=== PATIENT | male | born 1970 | race Caucasian/White ===

== ENCOUNTER 2018-07-09 16:26 | Emergency (ER) | payer OTHER ==
[2018-07-09 16:34] VITALS: BP 123/78
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
== END 2018-07-09 18:55 | disposition home or self-care (01) ==
LOC: ED 16:26
DX: S39.012A Strain of muscle, fascia and tendon of lower back, initial encounter (principal); V89.2XXA Person injured in unspecified motor-vehicle accident, traffic, initial encounter
CPT/HCPCS: 72131; 99283

== ENCOUNTER 2023-08-04 22:09 | Emergency (ER) | payer SELFPAY ==
[2023-08-04 22:22] VITALS: BP 120/70
[2023-08-04 22:39] LABS: RAPID STREP SCREEN Negative (Negative)
[2023-08-04 22:44] LABS: BASOPHILS % (AUTO) 0.3 %; EOSINOPHILS % (AUTO) 0.3 %; HCT - HEMATOCRIT 46.7 % (42.0-52.0); LYMPHOCYTES # (AUTO) 0.7 10^3/uL (1.5-3.5); LYMPHOCYTES % (AUTO) 6.1 %; MEAN CORPUSCULAR HEMOGLOBIN 31.3 pg (27.0-31.0); MEAN CORPUSCULAR HGB CONC 34.3 g/dL (32.0-36.0); MEAN CORPUSCULAR VOLUME 91.2 fL (80.0-94.0); MEAN PLATELET VOLUME 8.4 fL (7.4-11.4); MONOCYTES # (AUTO) 0.6 10^3/uL (0.0-1.0); MONOCYTES % (AUTO) 4.9 %; NEUTROPHILS # (AUTO) 10.2 10^3/uL (1.5-6.6); NEUTROPHILS % (AUTO) 88.1 %; PLT - PLATELET COUNT 245 10^3/uL (130-450); RED BLOOD COUNT 5.12 10^6/uL (4.70-6.10); RED CELL DISTRIBUTION WIDTH 13.2 % (12.0-15.0); WHITE BLOOD COUNT 11.6 x10^3/uL (4.8-10.8)
[2023-08-04] MEDS: IPRATROPIUM/ALBUTEROL 3 ML NEB INH STA (22:45)
[2023-08-04] MEDS: DEXAMETHASONE 10 MG/ML VIAL IV STA (22:50)
[2023-08-04 22:57] LABS: ALBUMIN 4.6 g/dL (3.2-5.5); ALBUMIN/GLOBULIN RATIO 2.1 (1.0-2.2); ALKALINE PHOSPHATASE 69 IU/L (42-121); ALT ALANINE AMINOTRANSFERASE 10 IU/L (10-60); AST ASPARTATE AMINOTRANSFERASE 16 IU/L (10-42); BUN - BLOOD UREA NITROGEN 14 mg/dL (6-20); CALCIUM 9.5 mg/dL (8.5-10.3); CARBON DIOXIDE - CO2 25 mmol/L (21-32); CHLORIDE 102 mmol/L (101-111); GFR - MDRD 78 (>89); GLUCOSE 117 mg/dL (74-104); LIPASE < 10 U/L (11-82); POTASSIUM 4.2 mmol/L (3.5-4.5); SODIUM 134 mmol/L (135-145); TOTAL PROTEIN 6.8 g/dL (6.4-8.9)
--- NOTE | 2023-08-04 23:30 | XRAY Report ---
PROCEDURE: Chest 1V INDICATIONS: cough/sob/hypoxia TECHNIQUE: One view of the chest was acquired. COMPARISON: None. FINDINGS: Surgical changes and devices: None. Lungs and pleura: No pleural effusions or pneumothorax. Mild perihilar airway thickening. No focal c onsolidation. Mediastinum: Mediastinal contours appear normal. Heart size is normal. Bones and chest wall: No suspicious bony lesions. Overlying soft tissues appear unremarkable. IMPRESSION: Mild perihilar airway thickening suggestive of bronchitis either infectious or inflammatory etiology. No focal consolidation. Reviewed by: Brett Bradley MD on 08/04/2023 11:28 PM PDT Approved by: Brett Bradley MD on 08/04/2023 11:28 PM PDT Station ID: [id number]
[2023-08-04 23:38] LABS: B. PARAPERTUSSIS- RESP PCR PAN NOT DETECTED; B. PERTUSSIS- RESP PCR PANEL NOT DETECTED; C. PNEUMONIAE- RESP PCR PANEL NOT DETECTED; CORONAVIRUS 229E-RESP PCR NOT DETECTED; CORONAVIRUS HKU1-RESP PCR NOT DETECTED; CORONAVIRUS NL63-RESP PCR NOT DETECTED; CORONAVIRUS OC43-RESP PCR NOT DETECTED; HUMAN METAPNEUMOVIRUS NOT DETECTED; INFLUENZA A- RESP PCR PANEL NOT DETECTED; INFLUENZA B - RESP PCR PANEL NOT DETECTED; M. PNEUMONIAE- RESP PCR PANEL NOT DETECTED; PARAINFLUENZA VIRUS 1 NOT DETECTED; PARAINFLUENZA VIRUS 2 NOT DETECTED; PARAINFLUENZA VIRUS 3 NOT DETECTED; PARAINFLUENZA VIRUS 4 NOT DETECTED; RHINOVIRUS/ENTEROVIRUS DETECTED; RSV- RESP PCR PANEL NOT DETECTED; SARS-CoV-2 -RESP PCR PANEL NOT DETECTED
[2023-08-04] MEDS ORDERED: iohexoL-300 100 ML VIAL ONE (23:45)
[2023-08-05] MEDS: iohexoL-300 100 ML VIAL IVP ONE (00:24)
--- NOTE | 2023-08-05 01:20 | CT Report ---
PROCEDURE: Angio Chest INDICATIONS: hypoxia, dyspnea CONTRAST: Omni 300, 80mls TECHNIQUE: After the administration of intravenous contrast, 2 mm axial images were acquired from the pulmonary apices to the posterior costophrenic angles during the arterial phase. In addition, 1 mm lung kernel and 5 mm soft tissue kernel reconstructions were performed. 3-dimensional coronal oblique maximum int ensity projection (MIP) reformats, 8 mm axial MIP, and 5 mm coronal and sagittal MPR reformats were t hen performed through the thorax. For radiation dose reduction, the following was used: automated exp osure control, adjustment of mA and/or kV according to patient size. COMPARISON: Chest radiograph from earlier same day FINDINGS: Image quality: Diagnostic. Large vessels: No filling defects within the opacified pulmonary arteries, accounting for motion and contrast timing. No evidence of acute aortic syndrome or aortic aneurysm. Lungs and pleura: Mild ill-defined groundglass opacities of the central left upper lobe. No dense con solidation. No pleural effusions. No pneumothorax. No suspicious pulmonary nodules which require fol low up. Mediastinum: Heart size is normal. No pericardial effusion. No large vessel abnormality. No mediastin al adenopathy by size criteria. Chest wall and lower neck: Thyroid is unremarkable. No axillary or supraclavicular adenopathy by size . Bones: No aggressive osseous abnormality. Upper Abdomen: Unremarkable. IMPRESSION: No acute pulmonary emboli. Small patchy ill-defined groundglass opacity of the central left upper lobe likely representing infec tious or inflammatory process. No dense consolidation. No adenopathy. Consider follow-up chest CT in 3 months to document stability versus resolution. Reviewed by: Brett Bradley MD on 08/05/2023 1:19 AM PDT Approved by: Brett Bradley MD on 08/05/2023 1:19 AM PDT Station ID: [id number]
[2023-08-05 01:26] VITALS: O2SAT 92
--- NOTE | 2023-08-05 01:35 | ED Physician Documentation ---
PD HPI DYSPNEA - Stated complaint Stated Complaint: SOA - Chief complaint Chief Complaint: Resp - History obtained from History obtained from: Patient, EMS - Additional information Additional information: The pt comes to the ED with CC of dyspnea that started overnight. The pt has been noticing chills and sore throat for the past couple of days. He states he had asthma as a child, but this resolved when he started smoking at 18 years old. He states he has been cutting back recently, and only smokes a few cigarettes a day. He denies fever. He has never been given a diagnosis of COPD, but states he doesn't really go to the doctor, either. No CP. No cardiac issues. Pt is otherwise healthy as far as he knows. PD PAST MEDICAL HISTORY - Past Medical History Past Medical History: Yes Cardiovascular: None Respiratory: Asthma Neuro: None Endocrine/Autoimmune: None GI: None : None HEENT: None Psych: None Musculoskeletal: None Derm: None - Past Surgical History Past Surgical History: No - Present Medications Home Medications: Ambulatory Orders Medication Instructions Recorded Confirmed Albuterol Sulf [Ventolin Hfa 1 - 2 puffs INH Q4HR PRN #1 each 08/05/23 Inhaler] Azithromycin [Zithromax] 0 mg PO DAILY #6 tablet 08/05/23 predniSONE [Deltasone] 10 mg PO [id number] #42 tab 08/05/23 - Allergies Allergies/Adverse Reactions: Allergies Allergy/AdvReac Type Severity Reaction Status Date / Time No Known Drug Allergies Allergy Verified 08/04/23 22:22 - Social History Does the pt smoke?: No Smoking Status: Never smoker Does the pt drink ETOH?: No Does the pt have substance abuse?: No - Immunizations Immunizations are current?: No - POLST Patient has POLST: No PD ED PE NORMAL - Vitals Vital signs reviewed: Yes - General General: Alert and oriented X 3, No acute distress (Mildly labored respirations, otherwise NAD), Well developed/nourished - HEENT HEENT: Atraumatic, PERRL, EOMI, Moist mucous membranes - Neck Neck: Supple, no meningeal sign - Cardiac Cardiac: RRR, No murmur - Respiratory Respiratory: Other (Speaks full sentences, diffuse bilateral wheezing, mild. Mildly prolonged expiratory phase. ) - Abdomen Abdomen: Soft, Non tender, Non distended - Derm Derm: Normal color, Warm and dry, No rash - Extremities Extremities: No deformity, No edema (Grossly intact) - Neuro Neuro: Alert and oriented X 3 - Psych Psych: Normal mood, Normal affect Results - Vitals Vitals: Oxygen O2 Source Room air Oxygen Flow Rate 4 - Labs Labs: Microbiology 08/04/23 22:18 Group A Strep Throat Culture - Final Throat MIXED OROPHARYNGEAL AC PRESENT. NO BETA STREP PRESENT IN CULTURE. Laboratory Tests 08/04/23 08/04/23 08/04/23 22:18 22:18 22:40 WBC 11.6 H RBC 5.12 Hgb 16.0 Hct 46.7 MCV 91.2 MCH 31.3 H MCHC 34.3 RDW 13.2 Plt Count 245 MPV 8.4 Neut # (Auto) 10.2 H Lymph # (Auto) 0.7 L [place] # (Auto) 0.6 Eos # (Auto) 0.0 Baso # (Auto) 0.0 Absolute Nucleated RBC 0.00 Nucleated RBC % 0.0 Sodium Potassium Chloride Carbon Dioxide Anion Gap BUN Creatinine Estimated GFR (MDRD) Glucose Calcium Total Bilirubin AST ALT Alkaline Phosphatase Total Protein Albumin Globulin Albumin/Globulin Ratio Lipase Nasal Adenovirus (PCR) NOT DETECTED Nasal B. parapertussis DNA (PCR) NOT DETECTED Nasal Coronavir 229E PCR NOT DETECTED Nasal Coronavir HKU1 PCR NOT DETECTED Nasal Coronavir NL63 PCR NOT DETECTED Nasal Coronavir OC43 PCR NOT DETECTED Nasal Enterovir/Rhinovir PCR DETECTED A Nasal Influenza B PCR NOT DETECTED Nasal Influenza A PCR NOT DETECTED Nasal Parainfluen 1 PCR NOT DETECTED Nasal Parainfluen 2 PCR NOT DETECTED Nasal Parainfluen 3 PCR NOT DETECTED Nasal Parainfluen 4 PCR NOT DETECTED Nasal RSV (PCR) NOT DETECTED Nasal B.pertussis DNA PCR NOT DETECTED Nasal C.pneumoniae (PCR) NOT DETECTED [place] Human Metapneumo PCR NOT DETECTED Nasal M.pneumoniae (PCR) NOT DETECTED Nasal SARS-CoV-2 (PCR) NOT DETECTED Group A Strep Rapid Negative 08/04/23 22:40 WBC RBC Hgb Hct MCV MCH MCHC RDW Plt Count MPV Neut # (Auto) Lymph # (Auto) [place] # (Auto) Eos # (Auto) Baso # (Auto) Absolute Nucleated RBC Nucleated RBC % Sodium 134 L Potassium 4.2 Chloride 102 Carbon Dioxide 25 Anion Gap 7.0 BUN 14 Creatinine 1.0 Estimated GFR (MDRD) 78 L Glucose 117 H Calcium 9.5 Total Bilirubin 1.0 AST 16 ALT 10 Alkaline Phosphatase 69 Total Protein 6.8 Albumin 4.6 Globulin 2.2 Albumin/Globulin Ratio 2.1 Lipase < 10 L Nasal Adenovirus (PCR) Nasal B. parapertussis DNA (PCR) Nasal Coronavir 229E PCR Nasal Coronavir HKU1 PCR Nasal Coronavir NL63 PCR Nasal Coronavir OC43 PCR Nasal Enterovir/Rhinovir PCR Nasal Influenza B PCR Nasal Influenza A PCR Nasal Parainfluen 1 PCR Nasal Parainfluen 2 PCR Nasal Parainfluen 3 PCR Nasal Parainfluen 4 PCR Nasal RSV (PCR) Nasal B.pertussis DNA PCR Nasal C.pneumoniae (PCR) [place] Human Metapneumo PCR Nasal M.pneumoniae (PCR) Nasal SARS-CoV-2 (PCR) Group A Strep Rapid - Rads (name of study) chest XR Relevant Findings:: Final report received, Other (No focal consolidation; thickening of airways, inflammatory vs infectious) CTA chest Relevant Findings:: Final report received, Other (No PE; small focus possible infection) PD Medical Decision Making - ED course Complexity details: reviewed old records, reviewed results, re-evaluated patient, considered differential, d/w patient, d/w family ED course: The pt was treated with Decadron and a Duoneb, and was feeling much better on re-evaluation. He stated his breathing felt at baseline, and he was noted to no longer have prolonged expiratory phase or laboring. His sats were still ranging from 88-92% on RA. His chest XR had not shown a reason for his hypoxia, and I felt he should have a chest CT to evaluate for PE. This was done and showed no PE, but a small area of ground-glass appearance, possibly infectious. The pt was started on antibiotics. I d/w him that I suspect he has some degree of COPD that has not been diagnosed, given his long-standing smoking history and persistent sats from 88-92%, despite feeling back at his baseline. We have discussed the importance of quitting smoking to preserve what lung function he has left. We have discussed the need to finish the antibiotic course, and I have prescribed an inhaler and steroids for him. We have discussed the usual indications for return. Departure - Departure Disposition: 01 Home, Self Care Clinical Impression: URI, acute COPD (chronic obstructive pulmonary disease) Qualifiers: COPD type: COPD with acute exacerbation Qualified Code(s): J44.1 - Chronic obstructive pulmonary disease with (acute) exacerbation Condition: Stable Instructions: ED COPD Flare, ED Viral Syndrome Prescriptions: Albuterol Sulf [Ventolin Hfa Inhaler] 1 - 2 puffs INH Q4HR PRN #1 each PRN Reason: Shortness Of Air/Wheezing predniSONE [Deltasone] 10 mg PO [id number] #42 tab Azithromycin [Zithromax] 0 mg PO DAILY #6 tablet Comments: Your x-ray looks good. Your CT shows no blood clots. There is a very tiny focus of inflammation that could be a little bit of infection but this should not cause a significant sense of shortness of breath. We will put you on a short course of antibiotics for this. I will also prescribe you an inhaler and a course of steroids. All of your prescriptions will be electronically transmitted to [facility] pharmacy where you can pick them up later this morning. As far as your shortness of breath and wheezing, I suspect you have underlying COPD from smoking. Your x-ray shows some indicators of this and certainly would explain the chest tightness and wheezing with the onset of the cold you have been having. It is important that you try to get help with your smokingplease follow-up with your primary care provider to discuss a plan to quit smoking. Forms: PCP List Discharge Date/Time: 08/05/23 02:01
== END 2023-08-05 02:01 | disposition home or self-care (01) ==
LOC: ED 22:09
DX: J44.1 Chronic obstructive pulmonary disease with (acute) exacerbation (principal); J06.9 Acute upper respiratory infection, unspecified; F17.210 Nicotine dependence, cigarettes, uncomplicated
CPT/HCPCS: 36415; 71045; 71275; 80053; 83690; 85025; 87070; 87430; 87633; 94640; 94664; 96374; 99283; 99285; Q9967